=== PATIENT | male | born 1970 ===

== ENCOUNTER 2018-11-05 09:32 | Emergency (ER) | payer OTHER ==
[2018-11-05 09:58] VITALS: PULSE 71; BMI 28.0
[2018-11-05] MEDS ORDERED: Sodium Chloride 0.9% 1,000 ML IV STA (10:53)
--- NOTE | 2018-11-05 10:58 | ED PDOC ---
HPI: Back Time Seen by Provider: 11/05/18 10:45 Chief Complaint (Nursing): Back Pain Chief Complaint (Provider): back pain History Per: Patient History/Exam Limitations: no limitations Current Symptoms Are (Timing): Better Quality Of Discomfort: "Pain" Severity: None Pain Scale Rating Of: 0 Previous Symptoms: Back Pain Associated Symptoms: None Exacerbating Factor(s): Nothing Additional History Per: Patient Additional Complaint(s): 48 y/o male c/o left sided mid to lower back pain started Monday afternoon, rad to left lower abdomen with frequency urination. Patient states pain started suddenly on Monday worsening last night at midnight. Associated symptoms include nausea, denies vomiting. Patient states last night having the urge to go to the bathroom to have Bowel movement after which he took Karly-seltzer and pain improved. Patient denies pain a this time. Patient denies fever, sob, chest pain, diarrhea. Patient reports having history of kidney stones 10 yrs ago. Past Medical History Reviewed: Historical Data, Nursing Documentation, Vital Signs Vital Signs: Last Vital Signs Temp 98.1 F 11/05/18 09:58 Pulse 71 11/05/18 09:58 Resp 18 11/05/18 09:58 BP 160/99 H 11/05/18 09:58 Pulse Ox 99 11/05/18 09:58 - Medical History PMH: Arthritis, Kidney Stones - Family History Family History: States: Unknown Family Hx - Living Arrangements Living Arrangements: With Family - Social History Alcohol: None Drugs: Denies - Home Medications Home Medications: Ambulatory Orders Medication Instructions Recorded Ibuprofen [Motrin] 600 mg PO Q8H PRN #30 tab 11/05/18 - Allergies Allergies/Adverse Reactions: Allergies Allergy/AdvReac Type Severity Reaction Status Date / Time No Known Allergies Allergy Verified 11/05/18 10:00 Review of Systems ROS Statement: Except As Marked, All Systems Reviewed And Found Negative Gastrointestinal: Positive for: Nausea, Abdominal Pain. Negative for: Vomiting, Diarrhea, Constipation Genitourinary Male: Positive for: Frequency Physical Exam - Reviewed Nursing Documentation Reviewed: Yes Vital Signs Reviewed: Yes - Physical Exam Appears: Positive for: Well, Non-toxic, No Acute Distress Head Exam: Positive for: ATRAUMATIC, NORMAL INSPECTION, NORMOCEPHALIC Skin: Positive for: Normal Color, Warm, DRY Eye Exam: Positive for: EOMI, Normal appearance, PERRL ENT: Positive for: Normal ENT Inspection Neck: Positive for: Normal, Painless ROM, Supple Cardiovascular/Chest: Positive for: Regular Rate, Rhythm Respiratory: Positive for: CNT, Normal Breath Sounds Gastrointestinal/Abdominal: Positive for: Normal Exam, Bowel Sounds (normactive), Soft. Negative for: Tenderness, Mass, Distended, Guarding Male Genital Exam: Positive for: normal genitalia. Negative for: epididymal tenderness, scrotum tenderness (R), scrotum tenderness (L), testicular tend erness (R), testicular tenderness (L), urethral discharge Back: Positive for: Normal Inspection Extremity: Positive for: Normal ROM Neurological/Psych: Positive for: Awake, Alert, Normal Tone, Oriented - Laboratory Results Result Diagrams: 11/05/18 11:00 11/05/18 11:00 Urine dip results: Positive for: Blood (moderate ). Negative for: Leukocyte Esterase, Nitrate, Ketones, Glucose, Bilirubin, Protein - ECG O2 Sat by Pulse Oximetry: 99 Medical Decision Making Medical Decision Making: --CBC --CMP --UA --URINE C&S --CT ABD/PELVIS RENAL PROTOCOL URINE DIP: MODERATE BLOOD. PATIENT FOR CT R/O KIDNEY STONE. Accession No. : [id number] Patient Name / ID : DRAKE NAVARRO / [id number] Exam Date : 11/05/2018 11:34:30 ( Approved ) Study Comment : Sex / Age : M / 48Y Creator : Osei Ballard MD Dictator : Osei Ballard MD Manager Transplant : Returns Supervisor : Osei Ballard MD Approver2 : Report Date : 11/05/2018 12:31:36 My Comment : Date of service: 11/05/2018 PROCEDURE: CT Abdomen and Pelvis without intravenous contrast HISTORY: kidney stones COMPARISON: None. TECHNIQUE: Unenhanced. Neither IV nor oral contrast administered Radiation dose: Total exam DLP = 733.56 mGy-cm. This CT exam was performed using one or more of the following dose reduction techniques: Automated exposure control, adjustment of the mA and/or kV according to patient size, and/or use of iterative reconstruction technique. FINDINGS: LOWER THORAX: Unremarkable. LIVER: Unremarkable. No gross lesion or ductal dilatation. GALLBLADDER AND BILE DUCTS: Unremarkable. PANCREAS: Unremarkable. No gross lesion or ductal dilatation. SPLEEN: Unremarkable. ADRENALS: Unremarkable. No mass. KIDNEYS AND URETERS: Obstructive uropathy on the left related to recently passed 2 mm calculus now within the bladder adjacent to the left ureterovesical junction. Additional smaller calculus upper pole collecting system on the left. No additional upper tract abnormalities. VASCULATURE: Unremarkable. No aortic aneurysm. No atherosclerotic calcification or mural plaque present. BOWEL: Diverticulosis without an acute inflammatory component or other associated pathologic process. APPENDIX: Unremarkable. Normal appendix. PERITONEUM: Unremarkable. No free fluid. No free air. LYMPH NODES: Unremarkable. No enlarged lymph nodes. BLADDER: 2 mm calculus adjacent to the left ureterovesical junction indicative of recently passed stone. REPRODUCTIVE: Unremarkable. BONES: No acute fracture. Sclerotic L2 vertebral body, compression deformity. Schmorl's nodes. Elective follow-up recommended. OTHER FINDINGS: None. IMPRESSION: Mild unilateral, left obstructive uropathy. Dilatation of the left ureter and collecting system related to recently passed calculus now in the urinary bladder. Slight deformity L2 vertebral body likely associate with Schmorl's nodes. Elective follow-up may be beneficial. 13:00: labs reviewed by me, Ct scan ab/pelvis demonstrates a passed stone 2mm that is now in the bladder. Neg for signs of infection in the urine. patient stable for D/C home. Clinical findings discussed with patient, on CT scan Schmorl's nodes noted, patient states he is aware of it. Rx given for Motrin 600mg PO as needed for pain. Follow-p with urology given. Patient states understanding and agrees with plan. Given return to ED precautions. Disposition - Clinical Impression Clinical Impression: Renal calculus - Patient ED Disposition Is Patient to be Admitted: No Counseled Patient/Family Regarding: Diagnosis, Need For Followup - Disposition Referrals: Erlin Chávez MD [Staff Provider] - Disposition: Routine/Home Disposition Time: 13:00 Condition: GOOD Prescriptions: Ibuprofen [Motrin] 600 mg PO Q8H PRN #30 tab PRN Reason: Pain, Moderate (4-7) Instructions: Kidney Stones in Adults Print Language: MALTESE - POA Present On Arrival: None
[2018-11-05 11:10] LABS: URINE BILIRUBIN NEGATIVE (NEGATIVE); URINE BLOOD LARGE (NEGATIVE); URINE CLARITY CLEAR (Clear); URINE COLOR YELLOW (YELLOW); URINE GLUCOSE (UA) NEG (NEGATIVE); URINE LEUKOCYTE ESTERASE NEG Leu/uL (Negative); URINE PROTEIN NEGATIVE (NEGATIVE); URINE UROBILINOGEN 0.2-1.0 mg/dL (0.2-1.0)
[2018-11-05 11:15] LABS: BASO # 0.1 K/uL (0.0-0.2); BASO % 1.1 % (0.0-2.0); EOS # 0.8 K/uL (0.0-0.7); EOS % 10.3 % (0.0-4.0); HEMOGLOBIN 15.6 g/dL (12.0-18.0); LYMPH # 2.6 K/uL (1.0-4.3); MEAN CELL VOLUME 87.4 fl (80.0-94.0); MEAN CORPUSCULAR HEMOGLOBIN 29.7 pg (27.0-31.0); MEAN CORPUSCULAR HGB CONC 33.9 g/dL (33.0-37.0); MEAN PLATELET VOLUME 6.9 fl (7.2-11.7); MONO # 0.6 K/uL (0.0-0.8); NEUT # 3.6 K/uL (1.8-7.0); NEUT % 46.6 % (50.0-75.0); NRBC % 0.2 % (0.0-0.0); RBC 5.25 Mil/uL (4.40-5.90); RED CELL DISTRIBUTION WIDTH 13.2 % (11.5-14.5); WHITE BLOOD COUNT 7.7 K/uL (4.8-10.8)
[2018-11-05 11:38] LABS: ALBUMIN 4.3 g/dL (3.5-5.0)
[2018-11-05 11:39] LABS: ALT/SGPT 130 U/L (21-72); AST/SGOT 66 U/L (17-59); BLOOD UREA NITROGEN 19 mg/dl (9-20); CALCIUM 9.6 mg/dL (8.4-10.2); GFR NON-AFRICAN AMERICAN > 60
[2018-11-05 11:52] LABS: ALB/GLOB RATIO 1.3 (1.0-2.1)
--- NOTE | 2018-11-05 12:35 | CT ---
Date of service: 11/05/2018 PROCEDURE: CT Abdomen and Pelvis without intravenous contrast HISTORY: kidney stones COMPARISON: None. TECHNIQUE: Unenhanced. Neither IV nor oral contrast administered Radiation dose: Total exam DLP = 733.56 mGy-cm. This CT exam was performed using one or more of the following dose reduction techniques: Automated exposure control, adjustment of the mA and/or kV according to patient size, and/or use of iterative reconstruction technique. FINDINGS: LOWER THORAX: Unremarkable. LIVER: Unremarkable. No gross lesion or ductal dilatation. GALLBLADDER AND BILE DUCTS: Unremarkable. PANCREAS: Unremarkable. No gross lesion or ductal dilatation. SPLEEN: Unremarkable. ADRENALS: Unremarkable. No mass. KIDNEYS AND URETERS: Obstructive uropathy on the left related to recently passed 2 mm calculus now within the bladder adjacent to the left ureterovesical junction. Additional smaller calculus upper pole collecting system on the left. No additional upper tract abnormalities. VASCULATURE: Unremarkable. No aortic aneurysm. No atherosclerotic calcification or mural plaque present. BOWEL: Diverticulosis without an acute inflammatory component or other associated pathologic process. APPENDIX: Unremarkable. Normal appendix. PERITONEUM: Unremarkable. No free fluid. No free air. LYMPH NODES: Unremarkable. No enlarged lymph nodes. BLADDER: 2 mm calculus adjacent to the left ureterovesical junction indicative of recently passed stone. REPRODUCTIVE: Unremarkable. BONES: No acute fracture. Sclerotic L2 vertebral body, compression deformity. Schmorl's nodes. Elective follow-up recommended. OTHER FINDINGS: None. IMPRESSION: Mild unilateral, left obstructive uropathy. Dilatation of the left ureter and collecting system related to recently passed calculus now in the urinary bladder. Slight deformity L2 vertebral body likely associate with Schmorl's nodes. Elective follow-up may be beneficial.
[2018-11-05 13:27] VITALS: BP 143/92; RESP 16; TEMP 98.2
[2018-11-05 20:11] VITALS: O2SAT 99
== END 2018-11-05 13:25 | disposition home or self-care (01) ==
LOC: H.ER 09:32
DX: N20.0 Calculus of kidney (principal)
CPT/HCPCS: 74176; 80053; 81003; 85025; 87086; 96360; 96361; 99284; J7030